=== PATIENT | female | born 2000 | race Caucasian/White ===

== ENCOUNTER 2021-08-25 13:17 | Emergency (ER) | payer OTHER ==
[~2021-08-25] VITALS: Ht 157.5 cm; Wt 59.0 kg
[2021-08-25 13:38] VITALS: BP 128/47
--- NOTE | 2021-08-25 13:42 | NUR ---
BIB SELF C/O SWOLLEN BOTTOM LIP X TODAY. PMH: WEED USE
--- NOTE | 2021-08-25 14:00 | NUR ---
Patient being evaluated by SHALONDA ALLEN at [facility].
[2021-08-25] MEDS ORDERED: IBUPROFEN 600 MG TAB PO ONE (14:05)
[2021-08-25] MEDS ORDERED: IBUP-2213 PO (14:15)
[2021-08-25] MEDS ORDERED: CEPH500C16 PO (14:15)
[2021-08-25] MEDS ORDERED: BACI1PAC6 TP (14:15)
[2021-08-25 15:05] VITALS: BP 128/47
--- NOTE | 2021-08-25 15:05 | NUR ---
Patient discharged with v/s stable. Written and verbal after care instructions given and explained. Patient alert, oriented and verbalized understanding of instructions. Ambulatory with steady gait. All questions addressed prior to discharge. ID band removed. Patient advised to follow up with PMD. Rx of IBUPROFEN, KEFLEX, BACITRACIN given. Patient educated on indication of medication including possible reaction and side effects. Opportunity to ask questions provided and answered.
== END 2021-08-25 15:05 | disposition home or self-care (01) ==
LOC: MED 13:17
DX: T20.1 Burn of first degree of head, face, and neck (principal); X08.8XXD Exposure to other specified smoke, fire and flames, subsequent encounter
CPT/HCPCS: 90471; 90715; 99283